=== PATIENT | male | born 1985 | race Caucasian/White ===

== ENCOUNTER 2022-05-16 07:00 | Day surgery (SDC) | payer OTHER ==
[2022-05-15 11:35] VITALS: BMI 34.9
[2022-05-16 07:22] VITALS: RESP 18
[2022-05-16] MEDS ORDERED: MIDAZOLAM HCL 2 MG/2 ML SINGLE DOSE VIAL ONE ×2 (09:16→09:28)
[2022-05-16] MEDS ORDERED: ONDANSETRON 4 MG/2 ML VIAL ONE (09:31)
[2022-05-16] MEDS ORDERED: DEXAMETHASONE SOD PHOSPHATE 4 MG/1 ML VIAL ONE (09:31)
[2022-05-16] MEDS ORDERED: PROPOFOL 20 ML ONE (09:38)
[2022-05-16 10:20] VITALS: TEMP 98.5
[2022-05-16 10:47] VITALS: BP 121/71; PULSE 85
== END 2022-05-16 10:30 | disposition home or self-care (01) ==
LOC: FASU 07:00
PROVIDERS: ATTEND Orthopaedic Surgery Hand Surgery
PROC: 0LB80ZZ Excision of Left Hand Tendon, Open Approach (ICD-10-PCS; principal; 2022-05-16 09:36)
DX: D48.1 Neoplasm of uncertain behavior of connective and other soft tissue (principal)
CPT/HCPCS: 88305-TC